=== PATIENT | female | born 1945 | race Caucasian/White ===

== ENCOUNTER 2024-12-22 08:19 | Outpatient (CLI) | payer MEDICARE | END 2024-12-22 08:20 | disposition home or self-care (01) | LOC: ULT 08:19 | PROVIDERS: ATTEND Internal Medicine Nephrology | DX: I13.10 Hypertensive heart and chronic kidney disease without heart failure, with stage 1 through stage 4 chronic kidney disease, or unspecified chronic kidney disease (principal); E11.22 Type 2 diabetes mellitus with diabetic chronic kidney disease; E11.51 Type 2 diabetes mellitus with diabetic peripheral angiopathy without gangrene; N18.9 Chronic kidney disease, unspecified; N17.9 Acute kidney failure, unspecified; K21.9 Gastro-esophageal reflux disease without esophagitis; N39.0 Urinary tract infection, site not specified; E78.5 Hyperlipidemia, unspecified; M19.90 Unspecified osteoarthritis, unspecified site; R80.9 Proteinuria, unspecified | CPT/HCPCS: 76770; 93976 ==